=== PATIENT | male | born 1995 | race Caucasian/White ===

== ENCOUNTER 2018-03-21 08:46 | Emergency (ER) | payer BC ==
[2018-03-21] MEDS ORDERED: LIDOCAINE 1% INJ-PF (10 MG/ML) 30 ML SDV INJ ONE (09:41)
[2018-03-21] MEDS ORDERED: OXYCODONE-ACETAMINOPHEN 5-325 MG TABLET PO ONE (09:48)
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
[2018-03-21] MEDS ORDERED: DIPH/PERTUSS(ACELL)/TETANUS VAC/PF 0.5 ML SYR (>=10YO) IM ONE (10:49)
[2018-03-21 11:14] VITALS: BP 110/72
== END 2018-03-21 11:14 | disposition home or self-care (01) ==
LOC: ER 08:46
PROC: 0HQ1XZZ Repair Face Skin, External Approach (ICD-10-PCS; principal; 2018-03-21)
DX: S01.512A Laceration without foreign body of oral cavity, initial encounter (principal); S31.811A Laceration without foreign body of right buttock, initial encounter; M79.604 Pain in right leg; Y09 Assault by unspecified means; F17.200 Nicotine dependence, unspecified, uncomplicated; J45.909 Unspecified asthma, uncomplicated
CPT/HCPCS: 72220; 99283

== ENCOUNTER 2018-08-18 16:44 | Emergency (ER) | payer BC ==
[2018-08-18] MEDS ORDERED: IBUPROFEN 800 MG TABLET PO ONE (17:19)
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
[2018-08-18 18:28] VITALS: BP 120/71
== END 2018-08-18 18:28 | disposition home or self-care (01) ==
LOC: ER 16:44
DX: S00.83XA Contusion of other part of head, initial encounter (principal); Y04.0XXA Assault by unarmed brawl or fight, initial encounter; F17.210 Nicotine dependence, cigarettes, uncomplicated; Z86.14 Personal history of Methicillin resistant Staphylococcus aureus infection
CPT/HCPCS: 70486; 99284; 99406

== ENCOUNTER 2019-07-09 13:15 | Emergency (ER) | payer BC, MEDICAID ==
[2019-07-09] MEDS ORDERED: ASPIRIN 81 MG TABLET, CHEWABLE PO ONE (13:40)
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
[2019-07-09 14:59] LABS: ABSOLUTE BASOPHILS # (AUTO) 0.1 10^3/uL (0.0-0.2); ABSOLUTE EOSINOPHILS # (AUTO) 0.1 10^3/uL (0.0-0.6); ABSOLUTE LYMPHOCYTES (AUTO) 2.9 10^3/uL (0.5-4.7); ABSOLUTE MONOCYTES (AUTO) 0.9 10^3/uL (0.1-1.4); ABSOLUTE NEUT (AUTO) 6.5 10^3/uL (1.7-8.2); BASOPHILS % (AUTO) 0.7 % (0-2); EOSINOPHILS % (AUTO) 1.2 % (0-6); HEMATOCRIT 45.6 % (37.9-51.0); HEMOGLOBIN 15.6 g/dL (13.5-17.0); LYMPHOCYTES % (AUTO) 27.6 % (13-45); MEAN CORPUSCULAR HEMOGLOBIN 29.3 pg (27.0-33.4); MEAN CORPUSCULAR HGB CONC 34.2 g/dL (32.0-36.0); MEAN CORPUSCULAR VOLUME 86 fl (80-97); MONOCYTES % (AUTO) 8.8 % (3-13); PLATELET COUNT 230 10^3/uL (150-450); RED BLOOD COUNT 5.33 10^6/uL (4.35-5.55); RED CELL DISTRIBUTION WIDTH 13.7 % (11.5-14.0); SEGMENTED NEUTROPHILS % (AUTO) 61.7 % (42-78); TOTAL CELLS COUNTED % (AUTO) 100 %; WHITE BLOOD COUNT 10.5 10^3/uL (4.0-10.5)
[2019-07-09 15:21] LABS: ALBUMIN 5.1 g/dL (3.5-5.0); ALKALINE PHOSPHATASE 74 U/L (38-126); ANION GAP 13 (5-19); ASPARTATE AMINO TRANSFERASE 26 U/L (17-59); BILIRUBIN,DIRECT 0.1 mg/dL (0.0-0.4); BILIRUBIN,TOTAL 0.8 mg/dL (0.2-1.3); BLOOD UREA NITROGEN 18 mg/dL (7-20); CALCIUM 9.9 mg/dL (8.4-10.2); CARBON DIOXIDE 28 mmol/L (22-30); CHLORIDE 99 mmol/L (98-107); GLUCOSE 89 mg/dL (75-110); POTASSIUM 3.8 mmol/L (3.6-5.0); TOTAL PROTEIN 8.2 g/dL (6.3-8.2)
--- NOTE | 2019-07-09 16:05 | ER Document Report ---
ED General - General Chief Complaint: Chest Pain Stated Complaint: CHEST PAIN Time Seen by Provider: 07/09/19 13:36 Mode of Arrival: Ambulatory TRAVEL OUTSIDE OF THE [place] IN LAST 30 DAYS: No - HPI Notes: Patient is a 24-year male who presents to the emergency department for evalu ation of chest pain. He states his left-sided. He has occasional numbness in his left hand. He states this started yesterday following a panic attack. He describes it as a "bruised" feeling, states he feels like he has "numbness and tingling in his heart." He states he felt nauseated with it but has not vomited. Nothing seems to make it better or worse. He states it has been absolutely constant in character and in intensity since onset. He has had some associated palpitations associated with it as well. - Related Data Allergies/Adverse Reactions: iodine Allergy (Verified 07/09/19 13:33) oyster extract Allergy (Verified 07/09/19 13:33) Shellfish * [Shellfish] Allergy (Verified 07/09/19 13:33) Past Medical History - General Information source: Patient - Social History Smoking Status: Current Every Day Smoker Chew tobacco use (# tins/day): No Frequency of alcohol use: Occasional Family History: Arthritis, DM, Hypertension, Malignancy, Other - No family history of DVT or PE Patient has suicidal ideation: No Patient has homicidal ideation: No Pulmonary Medical History: Reports: Hx Asthma Renal/ Medical History: Denies: Hx Peritoneal Dialysis Musculoskeletal Medical History: Reports Hx Musculoskeletal Deformity, Reports Hx Musculoskeletal Trauma Skin Medical History: Reports Hx Cellulitis, Reports Hx MRSA Psychiatric Medical History: Reports: Hx Anxiety, Hx Attention Deficit Hyperactivity Disorder, Hx Depression Traumatic Medical History: Reports: Hx Fractures - Multiple fractures on the left side of his body Infectious Medical History: Reports: Hx MRSA Past Surgical History: Reports: Hx Orthopedic Surgery - Immunizations Immunizations up to date: Yes Hx Diphtheria, Pertussis, Tetanus Vaccination: Yes Review of Systems - Review of Systems Constitutional: No symptoms reported EENT: No symptoms reported Cardiovascular: See HPI Respiratory: No symptoms reported Gastrointestinal: See HPI Genitourinary: No symptoms reported Musculoskeletal: No symptoms reported Skin: No symptoms reported Neurological/Psychological: No symptoms reported Physical Exam - Vital signs Vitals: Temp Pulse Resp BP Pulse Ox 97.5 F 80 18 131/85 H 100 07/09/19 13:25 07/09/19 13:25 07/09/19 13:25 07/09/19 13:25 07/09/19 13:25 - Notes Notes: This is a very anxious appearing 24-year-old male, appears his stated age, no acute distress. Vital signs reviewed, please refer to chart. Head is normocephalic, atraumatic. Pupils equal round, reactive to light. Neck is supple without meningismus. Heart is regular rate and rhythm. Lungs are clear to auscultation bilaterally. Abdomen is soft, nontender, normoactive bowel sounds throughout. Extremities without cyanosis, clubbing. Posterior calves are nontender. Peripheral pulses are equal. Skin is warm and dry. Patient is awake, alert, neurological exam is nonfocal. Course - Re-evaluation Re-evalutation: 07/09/19 16:01 Patient presents emergency department for evaluation of chest pain. It is left- sided, nonexertional. It has been constant since onset. It certainly does not seem anginal in nature. Given the duration of his symptoms, negative troponin essentially rules out acute coronary syndrome in this patient. His only risk factor is smoking, and he is urged to quit. He voiced understanding to that. I also urged him to establish care with a primary care physician. I strongly urged him to discuss options for anxiety treatment. He voiced understanding to this. He is to return to the ED with worsening or new concerning symptoms of any sort. - Vital Signs Vital signs: Temp Pulse Resp BP Pulse Ox 97.5 F 80 18 131/85 H 100 07/09/19 13:25 07/09/19 13:25 07/09/19 13:25 07/09/19 13:25 07/09/19 13:25 - Laboratory Result Diagrams: 07/09/19 14:46 07/09/19 14:46 Laboratory results interpreted by me: 07/09/19 14:46 Albumin 5.1 H - Diagnostic Test Radiology reviewed: Reports reviewed Radiology results interpreted by me: 07/09/19 16:01 Chest X-Ray 07/09/19 13:39 IMPRESSION: No acute abnormality of the lungs. No focal airspace opacity - EKG Interpretation by Me Additional EKG results interpreted by me: 07/09/19 16:01 Sinus mechanism with a rate of 84 bpm. Normal axis and intervals, no acute ST changes concerning for ischemia or infarction. Discharge - Discharge Clinical Impression: Palpitations Chest pain Qualifiers: Chest pain type: unspecified Qualified Code(s): R07.9 - Chest pain, unspecified Condition: Stable Disposition: HOME, SELF-CARE Instructions: Chest Pain of Unclear Cause ([facility]), Palpitations (Irregular or Rapid Heartrate) ([facility]), Anxiety ([facility]) Additional Instructions: No clear cause was found for your chest pain today. Your chest x-ray, EKG, and lab work were all normal. Please try to quit smoking. Follow-up with primary care in 1 to 2 weeks. Return the emergency department with worsening or new concerning symptoms of any sort.
[2019-07-09 16:28] VITALS: BP 134/79
--- NOTE | 2019-07-09 19:03 | EKG REPORT ---
SEVERITY:- NORMAL ECG - SINUS RHYTHM : Confirmed by: Maggie Moran MD 09-Jul-2019 19:02:29
== END 2019-07-09 16:29 | disposition home or self-care (01) ==
LOC: ER 13:15
DX: R07.9 Chest pain, unspecified (principal); R20.0 Anesthesia of skin; R00.2 Palpitations; F17.200 Nicotine dependence, unspecified, uncomplicated; J45.909 Unspecified asthma, uncomplicated; Z91.013 Allergy to seafood
CPT/HCPCS: 36415; 71046; 80053; 84443; 84484; 85025; 93005; 93010; 99285

== ENCOUNTER 2020-05-05 07:14 | Emergency (ER) | payer BC ==
[2020-05-05] MEDS ORDERED: IBUPROFEN 600 MG TABLET PO ONE (08:15)
[2020-05-05] MEDS ORDERED: PREDNISONE 20 MG TABLET PO ONE (08:15)
--- NOTE | 2020-05-05 08:38 | ER Document Report ---
Entered by KALIE VALDOVINOS SCRIBE 05/05/20 0831 Acting as scribe for:ILYA ONEILL MD ED ENT - General Chief Complaint: Abdominal Problem Stated Complaint: HEADACHE,SORE THROAT Time Seen by Provider: 05/05/20 07:45 Mode of Arrival: Ambulatory Information source: Patient Notes: This 24 year old male patient presents to the emergency department today with complaints of a sore throat. Patient reports that his father was diagnosed with "stomatitis" last week and he has similar ulcerations. Patient states that he had a low-grade fever last night and this morning he has had a "little cough". TRAVEL OUTSIDE OF THE [place] 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 Lives with: Family Family History: Arthritis, DM, Hypertension, Malignancy, Other - No family history of DVT or PE Pulmonary Medical History: Reports: Hx Asthma Renal/ Medical History: Denies: Hx Peritoneal Dialysis Musculoskeletal Medical History: Reports Hx Musculoskeletal Deformity, Reports Hx Musculoskeletal Trauma Skin Medical History: Reports Hx Cellulitis, Reports Hx MRSA Psychiatric Medical History: Reports: Hx Anxiety, Hx Attention Deficit Hyperactivity Disorder, Hx Depression Traumatic Medical History: Reports: Hx Fractures - Multiple fractures on the left side of his body right knee Infectious Medical History: Reports: Hx MRSA Past Surgical History: Reports: Hx Orthopedic Surgery - Immunizations Immunizations up to date: Yes Hx Diphtheria, Pertussis, Tetanus Vaccination: Yes - 2017 Review of Systems - Review of Systems Constitutional: See HPI, Fever EENT: See HPI, Throat pain Cardiovascular: No symptoms reported Respiratory: See HPI, Cough Gastrointestinal: No symptoms reported Genitourinary: No symptoms reported Male Genitourinary: No symptoms reported Musculoskeletal: No symptoms reported Skin: No symptoms reported Hematologic/Lymphatic: No symptoms reported Neurological/Psychological: No symptoms reported -: Yes All other systems reviewed and negative Physical Exam - Vital signs Vitals: Temp Pulse Resp BP Pulse Ox 99.4 F 107 H 17 135/72 H 100 05/05/20 07:18 05/05/20 07:18 05/05/20 07:18 05/05/20 07:18 05/05/20 07:18 - Notes Notes: Physical Exam: General: Alert, appears well. HEENT: Normocephalic. Atraumatic. PERRL. Extraocular movements intact. Oropharynx clear. Tonsillar erythema, swelling, with exudate. There is tonsillar pillar erythema without swelling. Anterior cervical lymphadenopathy right greater than left. There are ulcerations on the top of the tongue and along the posterior lateral portions of the tongue. There are no ulcerations of the gums or oral mucosa. Neck: Supple. Non-tender. Respiratory: No respiratory distress. Clear and equal breath sounds bilaterally. Cardiovascular: Regular rate and rhythm. Abdominal: Normal Inspection. Non-tender. No distension. Normal Bowel Sounds. Back: No gross abnormalities. Extremities: Moves all four extremities. Upper extremities: Normal inspection. Normal ROM. Lower extremities: Normal inspection. No edema. Normal ROM. Neurological: Normal cognition. AAOx4. Normal speech. Psychological: Normal affect. Normal Mood. Skin: Warm. Dry. Normal color. Course - Re-evaluation Re-evalutation: 05/05/20 08:37 The patient was evaluated during the global COVID-19 pandemic and that diagnosis was suspected/considered upon their initial presentation. Their evaluation, treatment and testing was consistent with current guidelines for patients who present with complaints or symptoms that may be related to COVID-19. 05/05/20 10:30 Patient was sleeping soundly. I shook him and loudly called his name and eventually got him to wake up. He states he is feeling somewhat better. He milton l need a note for work. - Vital Signs Vital signs: Temp Pulse Resp BP Pulse Ox 98.5 F 94 17 115/55 L 99 05/05/20 11:01 05/05/20 11:01 05/05/20 11:01 05/05/20 11:01 05/05/20 11:01 - Laboratory Result Diagrams: 05/05/20 09:00 05/05/20 09:00 Laboratory results interpreted by me: 05/05/20 05/05/20 09:00 09:00 WBC 12.5 H RBC 4.34 L Hgb 12.9 L Hct 36.9 L RDW 14.8 H Lymph % (Auto) 8.0 L Absolute Neuts (auto) 9.8 H Absolute Monos (auto) 1.6 H Seg Neutrophils % 78.7 H Sodium 134.2 L Discharge - Discharge Clinical Impression: Viral stomatitis Condition: Stable Disposition: HOME, SELF-CARE Additional Instructions: Your evaluation today suggest you have a viral stomatitis. Your history suggests that you probably caught this from your father since he had similar symptoms recently. It is important that you get plenty of rest and stay well-hydrated. Take ibuprofen and Tylenol for pain, fever, and other discomfort. Start the prednisone as prescribed tomorrow--it will reduce inflammation and make you more comfortable while you are getting over this infection. Follow-up with your primary care provider if not improving over the next few days. RETURN TO THE EMERGENCY ROOM IF ANY NEW OR WORSENING SYMPTOMS. Prescriptions: Prednisone [Deltasone 10 mg Tablet] 10 mg PO ASDIR PRN #21 tablet PRN Reason: Forms: Return to Work I personally performed the services described in the documentation, reviewed and edited the documentation which was dictated to the scribe in my presence, and it accurately records my words and actions.
[2020-05-05 09:29] LABS: ABSOLUTE MONOCYTES (AUTO) 1.6 10^3/uL (0.1-1.4); ABSOLUTE NEUT (AUTO) 9.8 10^3/uL (1.7-8.2); BASOPHILS % (AUTO) 0.2 % (0-2); EOSINOPHILS % (AUTO) 0.2 % (0-6); HEMATOCRIT 36.9 % (37.9-51.0); HEMOGLOBIN 12.9 g/dL (13.5-17.0); MEAN CORPUSCULAR HEMOGLOBIN 29.6 pg (27.0-33.4); MEAN CORPUSCULAR HGB CONC 34.8 g/dL (32.0-36.0); MEAN CORPUSCULAR VOLUME 85 fl (80-97); MONOCYTES % (AUTO) 12.9 % (3-13); PLATELET COUNT 184 10^3/uL (150-450); RED BLOOD COUNT 4.34 10^6/uL (4.35-5.55); RED CELL DISTRIBUTION WIDTH 14.8 % (11.5-14.0); SEGMENTED NEUTROPHILS % (AUTO) 78.7 % (42-78); TOTAL CELLS COUNTED % (AUTO) 100 %; WHITE BLOOD COUNT 12.5 10^3/uL (4.0-10.5)
[2020-05-05 09:48] LABS: ALBUMIN 4.5 g/dL (3.5-5.0); ALKALINE PHOSPHATASE 76 U/L (38-126); ANION GAP 9 (5-19); ASPARTATE AMINO TRANSFERASE 25 U/L (17-59); BILIRUBIN,TOTAL 0.5 mg/dL (0.2-1.3); BLOOD UREA NITROGEN 18 mg/dL (7-20); CALCIUM 9.2 mg/dL (8.4-10.2); CARBON DIOXIDE 27 mmol/L (22-30); CHLORIDE 98 mmol/L (98-107); GLUCOSE 98 mg/dL (75-110); POTASSIUM 4.1 mmol/L (3.6-5.0); TOTAL PROTEIN 7.4 g/dL (6.3-8.2)
[2020-05-05 11:06] VITALS: BP 115/55
== END 2020-05-05 11:05 | disposition home or self-care (01) ==
LOC: ER 07:14
DX: K12.1 Other forms of stomatitis (principal); R51 Headache; J02.9 Acute pharyngitis, unspecified; R50.9 Fever, unspecified; R05 Cough; Z88.8 Allergy status to other drugs, medicaments and biological substances; F17.210 Nicotine dependence, cigarettes, uncomplicated; J45.909 Unspecified asthma, uncomplicated
CPT/HCPCS: 99283; 36415; 87070; 87880; 85025; 80053; J7512

== ENCOUNTER 2020-05-09 10:20 | Emergency (ER) | payer BC ==
--- NOTE | 2020-05-09 10:59 | ER Document Report ---
HPI - HPI Time Seen by Provider: 05/09/20 10:54 Pain Level: 5 Notes: 24-year-old male patient presents emergency department with complaints of sore throat and pain in his mouth. Patient states he was recently seen here and diagnosed with viral stomatitis. He reports pain with swallowing but he is able to swallow. No fevers, chills, nausea, vomiting. No concern for COVID-19 exposure. - ROS Systems Reviewed and Negative: Yes All other systems reviewed and negative - EENT EENT: REPORTS: Sore Throat - REPRODUCTIVE Reproductive: DENIES: : Past Medical History - General Information source: Patient - Social History Smoking Status: Never Smoker Chew tobacco use (# tins/day): No Frequency of alcohol use: None Drug Abuse: None Family History: Arthritis, DM, Hypertension, Malignancy, Other - No family history of DVT or PE Patient has homicidal ideation: No Pulmonary Medical History: Reports: Hx Asthma Renal/ Medical History: Denies: Hx Peritoneal Dialysis Musculoskeletal Medical History: Reports Hx Musculoskeletal Deformity, Reports Hx Musculoskeletal Trauma Skin Medical History: Reports Hx Cellulitis, Reports Hx MRSA Psychiatric Medical History: Reports: Hx Anxiety, Hx Attention Deficit Hyperactivity Disorder, Hx Depression Traumatic Medical History: Reports: Hx Fractures - Multiple fractures on the left side of his body right knee Infectious Medical History: Reports: Hx MRSA Past Surgical History: Reports: Hx Orthopedic Surgery - Immunizations Immunizations up to date: Yes Hx Diphtheria, Pertussis, Tetanus Vaccination: Yes - 2017 Vertical Provider Document - CONSTITUTIONAL Notes: PHYSICAL EXAMINATION: GENERAL: Well-appearing, well-nourished and in no acute distress. HEAD: Atraumatic, normocephalic. EYES: Pupils equal round extraocular movements intact, conjunctiva are normal. ENT: Nares patent, oropharynx mildly erythematous, mild tonsillar swelling, no exudates, uvula midline, no peritonsillar abscess. Multiple ulcerations noted to tongue. NECK: Normal range of motion LUNGS: No respiratory distress Musculoskeletal: Normal range of motion NEUROLOGICAL: Normal speech, normal gait. PSYCH: Normal mood, normal affect. SKIN: Warm, Dry, normal turgor, no rashes or lesions noted. - INFECTION CONTROL TRAVEL OUTSIDE OF THE [place] IN LAST 30 DAYS: No Course - Re-evaluation Re-evalutation: Patient appears well, nontoxic. He is speaking in full complete sentences without difficulty. He is swallowing without difficulty. He is on steroids for his viral stomatitis, will also prescribe Magic mouthwash. Patient agreeable to this plan. Discharge - Discharge Clinical Impression: Viral stomatitis Condition: Stable Disposition: HOME, SELF-CARE Additional Instructions: Please continue taking the steroids as prescribed by Dr. Kimball. Start using the medicated mouthwash, you may use this 4 times per day. This should help with pain and inflammation. You will need to follow-up with your primary care provider. Please continue taking Tylenol and ibuprofen for discomfort as well. Prescriptions: Nystatin/Dexameth/Diphen [Magic Mouthwash ([facility] Formula) Susp] 10 ml PO QID #240 ml Forms: Return to Work
[2020-05-09 11:02] VITALS: BP 130/62
== END 2020-05-09 11:10 | disposition home or self-care (01) ==
LOC: ER 10:20
DX: K12.1 Other forms of stomatitis (principal); J02.9 Acute pharyngitis, unspecified; R13.10 Dysphagia, unspecified; J45.909 Unspecified asthma, uncomplicated
CPT/HCPCS: 99283

== ENCOUNTER 2020-07-06 19:18 | Emergency (ER) | payer BC ==
[2020-07-06 19:26] VITALS: BP 129/77
--- NOTE | 2020-07-06 19:55 | ER Document Report ---
HPI - HPI Patient complains to provider of: Work clearance Time Seen by Provider: 07/06/20 19:45 Pain Level: Denies Notes: 25-year-old male to the emergency department with complaints of nausea and vomiting that began 2 days ago and has since resolved. He states his symptoms started after eating undercooked chicken. He states that his significant other made chicken and it looked "so good" that he did not realize that it was undercooked until used into the third breast of chicken. He states he got sick later that night and had been having nausea and vomiting for the past 2 days. He states he was able to hold up some Pepto-Bismol today. And since then has not had any nausea or vomiting. He states that he has been able to eat lots of different things including Doritos and spaghetti. He denies any abdominal pain, diarrhea, fevers, sore throat, cough, congestion, ear pain, or body aches. He states that his work is making him to get medical clearance prior to returning. He denies any known COVID-19 exposures. - ROS Systems Reviewed and Negative: Yes All other systems reviewed and negative - CONSTITUTIONAL Constitutional: DENIES: Fever, Chills - EENT EENT: DENIES: Sore Throat, Ear Pain - NEURO Neurology: DENIES: Headache - CARDIOVASCULAR Cardiovascular: DENIES: Chest pain - RESPIRATORY Respiratory: DENIES: Trouble Breathing, Coughing - GASTROINTESTINAL Gastrointestinal: REPORTS: Nausea - Nausea and vomiting that began 2 days ago and is now resolved. DENIES: Abdominal Pain, Diarrhea, Constipation - MUSCULOSKELETAL Musculoskeletal: DENIES: Back Pain, Neck Pain, Swelling - DERM Skin Color: Normal Skin Problems: None Past Medical History - General Information source: Patient - Social History Smoking Status: Current Every Day Smoker Frequency of alcohol use: Rare Drug Abuse: None Family History: Arthritis, DM, Hypertension, Malignancy, Other - No family hist ory of DVT or PE Pulmonary Medical History: Reports: Hx Asthma Renal/ Medical History: Denies: Hx Peritoneal Dialysis Musculoskeletal Medical History: Reports Hx Musculoskeletal Deformity, Reports Hx Musculoskeletal Trauma Skin Medical History: Reports Hx Cellulitis, Reports Hx MRSA Psychiatric Medical History: Reports: Hx Anxiety, Hx Attention Deficit Hyperactivity Disorder, Hx Depression Traumatic Medical History: Reports: Hx Fractures - Multiple fractures on the left side of his body right knee Infectious Medical History: Reports: Hx MRSA Past Surgical History: Reports: Hx Orthopedic Surgery - Immunizations Immunizations up to date: Yes Hx Diphtheria, Pertussis, Tetanus Vaccination: Yes - 2017 Vertical Provider Document - CONSTITUTIONAL Agree With Documented VS: Yes Exam Limitations: No Limitations General Appearance: WD/WN, No Apparent Distress - INFECTION CONTROL TRAVEL OUTSIDE OF THE [place] IN LAST 30 DAYS: No - HEENT HEENT: Atraumatic, Normocephalic, PERRLA - NECK Neck: Normal Inspection, Supple - RESPIRATORY Respiratory: Breath Sounds Normal, No Respiratory Distress. negative: Rales, Rhonchi, Wheezing - CARDIOVASCULAR Cardiovascular: Regular Rate, Regular Rhythm, No Murmur - GI/ABDOMEN Gastrointestinal: Abdomen Soft, Abdomen Non-Tender, No Organomegaly - BACK Back: Normal Inspection. negative: CVA Tenderness-Right, CVA Tenderness-Left - MUSCULOSKELETAL/EXTREMETIES Musculoskeletal/Extremeties: MAEW, FROM, Non-Tender - NEURO Level of Consciousness: Awake, Alert, Appropriate Motor/Sensory: No Motor Deficit, No Sensory Deficit - DERM Integumentary: Warm, Dry, No Rash Course - Re-evaluation Re-evalutation: Impression: Nausea and vomiting that is resolved with Pepto-Bismol at home. Patient has a completely normal exam. His vital signs are reassuring. He has been eating normal food for most of the day. Do not think that he needs further lab work or imaging. He has no other signs or symptoms of COVID-19. Plan will be to discharge her arm and write for work note to return. Will supply with prescription for Zofran in case his vomiting returns. Have encouraged him to return at any time should he worsen. Patient agrees with the plan - Vital Signs Vital signs: Temp Pulse Resp BP Pulse Ox 98.3 F 81 16 129/77 H 96 07/06/20 19:25 07/06/20 19:25 07/06/20 19:25 07/06/20 19:25 07/06/20 19:25 Discharge - Discharge Clinical Impression: Vomiting Qualifiers: Vomiting type: unspecified Vomiting Intractability: non-intractable Nausea presence: with nausea Qualified Code(s): R11.2 - Nausea with vomiting, unspecified Condition: Stable Disposition: HOME, SELF-CARE Instructions: Vomiting ([facility]) Additional Instructions: Push fluids. Take medicines as needed for any further nausea. Return if you have worsening symptoms. Prescriptions: Ondansetron [Zofran Odt 4 mg Tablet] 1 - 2 tab PO Q4H PRN #15 tab.rapdis PRN Reason: For Nausea/Vomiting Forms: Return to Work Referrals: [facility] [Provider Group] - Follow up as needed
== END 2020-07-06 19:55 | disposition home or self-care (01) ==
LOC: ER 19:18
DX: R11.2 Nausea with vomiting, unspecified (principal); F17.200 Nicotine dependence, unspecified, uncomplicated; J45.909 Unspecified asthma, uncomplicated
CPT/HCPCS: 99283

== ENCOUNTER 2020-08-06 15:57 | Emergency (ER) | payer SELFPAY ==
--- NOTE | 2020-08-06 16:59 | ER Document Report ---
ED Medical Screen (RME) - General Stated Complaint: VOMITING BLOOD Time Seen by Provider: 08/06/20 16:45 TRAVEL OUTSIDE OF THE [place] IN LAST 30 DAYS: No - HPI Notes: 08/06/20 16:53 25 yr old male presents for an evaluation of vomiting several times yesterday and then this morning he states he vomited up around a tablespoon of blood. pt states he was wretching when he was vomiting. denies being on blood thinners. no otc meds tried. pt states he is unsure if he has been around covid positive patients, but would like to be checked for this today. denies cp, sob. is currently not nauseous or vomiting. pt is drinking and eating without issues. no chronic medical issues. pt smokes. denies any fevers or chills. denies any abd pain. I have greeted and performed a rapid initial assessment of this patient. A comprehensive ED assessment and evaluation of the patient, analysis of test results and completion of the medical decision making process will be conducted by additional ED providers. PHYSICAL EXAMINATION: GENERAL: Well-appearing, well-nourished and in no acute distress. HEAD: Atraumatic, normocephalic. NECK: Normal range of motion CV: s1, s2 regular LUNGS: No respiratory distress - Related Data Allergies/Adverse Reactions: iodine Allergy (Verified 05/09/20 10:52) oyster extract Allergy (Verified 05/09/20 10:52) Shellfish * [Shellfish] Allergy (Verified 05/09/20 10:52) Past Medical History Pulmonary Medical History: Reports: Hx Asthma Renal/ Medical History: Denies: Hx Peritoneal Dialysis Musculoskeltal Medical History: Reports Hx Musculoskeletal Deformity, Reports Hx Musculoskeletal Trauma Skin Medical History: Reports Hx Cellulitis, Reports Hx MRSA Psychiatric Medical History: Reports: Hx Anxiety, Hx Attention Deficit Hyperactivity Disorder, Hx Depression Traumatic Medical History: Reports: Hx Fractures - Multiple fractures on the left side of his body right knee Infectious Medical History: Reports: Hx MRSA Past Surgical History: Reports: Hx Orthopedic Surgery - Immunizations Immunizations up to date: Yes Hx Diphtheria, Pertussis, Tetanus Vaccination: Yes - 2016 Physical Exam - Vital signs Vitals: Temp Pulse Resp BP Pulse Ox 97.7 F 84 18 130/75 H 97 08/06/20 16:25 08/06/20 16:25 08/06/20 16:25 08/06/20 16:25 08/06/20 16:25 Course - Vital Signs Vital signs: Temp Pulse Resp BP Pulse Ox 97.7 F 84 18 130/75 H 97 08/06/20 16:25 08/06/20 16:25 08/06/20 16:25 08/06/20 16:25 08/06/20 16:25
--- NOTE | 2020-08-06 18:10 | RADIOLOGY REPORT (SQ) ---
EXAM DESCRIPTION: CHEST SINGLE VIEW IMAGES COMPLETED DATE/TIME: 08/06/2020 5:58 pm REASON FOR STUDY: coughing, vomiting COMPARISON: None. EXAM PARAMETERS: NUMBER OF VIEWS: One view. TECHNIQUE: Single frontal radiographic view of the chest acquired. RADIATION DOSE: NA LIMITATIONS: None. FINDINGS: LUNGS AND PLEURA: No focal consolidation, pleural effusion, or pneumothorax. MEDIASTINUM AND HILAR STRUCTURES: No masses. Contour normal. HEART AND VASCULAR STRUCTURES: Heart normal in size. Normal vasculature. BONES: No acute findings. HARDWARE: None in the chest. OTHER: No other significant finding. IMPRESSION: NO ACUTE RADIOGRAPHIC FINDING IN THE CHEST. TECHNICAL DOCUMENTATION: JOB ID: [id number] 2010 [employer]- All Rights Reserved Reading location - IP/workstation name: [email or web address]
[2020-08-06 18:46] LABS: AMORPHOUS SEDIMENT,URINE 2+ /HPF; APPEARANCE,URINE TURBID; BILIRUBIN,URINE NEGATIVE (NEGATIVE); CALCIUM OXALATE CRYSTALS,URINE FEW /HPF; COLOR,URINE YELLOW; GLUCOSE, URINE NEGATIVE (NEGATIVE); KETONES,URINE NEGATIVE (NEGATIVE); LEUKOCYTE ESTERASE,URINE NEGATIVE (NEGATIVE); NITRITE,URINE NEGATIVE (NEGATIVE); PROTEIN,URINE 30 mg/dL (NEGATIVE); URINE SPECIFIC GRAVITY 1.034
[2020-08-06 19:14] LABS: ABSOLUTE BASOPHILS # (AUTO) 0.1 10^3/uL (0.0-0.2); ABSOLUTE EOSINOPHILS # (AUTO) 0.2 10^3/uL (0.0-0.6); ABSOLUTE LYMPHOCYTES (AUTO) 2.1 10^3/uL (0.5-4.7); ABSOLUTE MONOCYTES (AUTO) 0.6 10^3/uL (0.1-1.4); ABSOLUTE NEUT (AUTO) 4.7 10^3/uL (1.7-8.2); BASOPHILS % (AUTO) 0.7 % (0-2); EOSINOPHILS % (AUTO) 3.2 % (0-6); HEMOGLOBIN 11.7 g/dL (13.5-17.0); LYMPHOCYTES % (AUTO) 27.6 % (13-45); MEAN CORPUSCULAR HEMOGLOBIN 28.2 pg (27.0-33.4); MEAN CORPUSCULAR HGB CONC 34.3 g/dL (32.0-36.0); MEAN CORPUSCULAR VOLUME 82 fl (80-97); MONOCYTES % (AUTO) 7.7 % (3-13); PLATELET COUNT 265 10^3/uL (150-450); RED BLOOD COUNT 4.13 10^6/uL (4.35-5.55); SEGMENTED NEUTROPHILS % (AUTO) 60.8 % (42-78); TOTAL CELLS COUNTED % (AUTO) 100 %; WHITE BLOOD COUNT 7.7 10^3/uL (4.0-10.5)
[2020-08-06 19:30] LABS: URINE BARBITURATES SCREEN NEGATIVE; URINE COCAINE SCREEN NEGATIVE; URINE METHADONE SCREEN NEGATIVE; URINE PHENCYCLIDINE SCREEN NEGATIVE
[2020-08-06 19:33] LABS: ALBUMIN 3.9 g/dL (3.5-5.0); ALKALINE PHOSPHATASE 67 U/L (38-126); ANION GAP 6 (5-19); ASPARTATE AMINO TRANSFERASE 17 U/L (17-59); BILIRUBIN,DIRECT 0.1 mg/dL (0.0-0.4); BILIRUBIN,TOTAL 0.3 mg/dL (0.2-1.3); BLOOD UREA NITROGEN 13 mg/dL (7-20); CARBON DIOXIDE 34 mmol/L (22-30); CHLORIDE 97 mmol/L (98-107); GLUCOSE 89 mg/dL (75-110); POTASSIUM 3.8 mmol/L (3.6-5.0); TOTAL PROTEIN 6.4 g/dL (6.3-8.2)
[2020-08-06 19:41] LABS: URINE BENZODIAZEPINES SCREEN UNCONFIRMED POSITIVE
[2020-08-06 19:42] LABS: URINE MARIJUANA (THC) SCREEN UNCONFIRMED POSITIVE
--- NOTE | 2020-08-06 19:59 | ER Document Report ---
Entered by KALIE VALDOVINOS SCRIBE 08/06/201911 Acting as scribe for:[facility]/ - General Chief Complaint: Vomiting Stated Complaint: VOMITING BLOOD Time Seen by Provider: 08/06/20 16:45 Mode of Arrival: Ambulatory Information source: Patient Notes: This 25-year-old male patient presents to the emergency department today with complaints of nausea and vomiting last night. Patient states he thinks he ate bad chicken. Patient states after several episodes of retching he noticed some blood specks in his vomit. Patient states he mentioned this to his grandma who told him that this could be a sign of COVID-19 and that he needed to be checked out. He denies any sick contacts or known COVID-19 exposure. TRAVEL OUTSIDE OF THE [place] IN LAST 30 DAYS: No - Related Data Allergies/Adverse Reactions: iodine Allergy (Verified 08/06/20 18:59) oyster extract Allergy (Verified 08/06/20 18:59) Shellfish * [Shellfish] Allergy (Verified 08/06/20 18:59) Past Medical History - General Information source: Patient - Social History Smoking Status: Current Every Day Smoker Cigarette use (# per day): Yes Frequency of alcohol use: Occasional Drug Abuse: None Lives with: Family Family History: Arthritis, DM, Hypertension, Malignancy, Other - No family history of DVT or PE Pulmonary Medical History: Reports: Hx Asthma Musculoskeletal Medical History: Reports Hx Musculoskeletal Deformity, Reports Hx Musculoskeletal Trauma Skin Medical History: Reports Hx Cellulitis, Reports Hx MRSA Psychiatric Medical History: Reports: Hx Anxiety, Hx Attention Deficit Hyperactivity Disorder, Hx Depression Traumatic Medical History: Reports: Hx Fractures - Multiple fractures on the left side of his body right knee Infectious Medical History: Reports: Hx MRSA Past Surgical History: Reports: Hx Orthopedic Surgery - Immunizations Immunizations up to date: Yes Hx Diphtheria, Pertussis, Tetanus Vaccination: Yes - 2017 Review of Systems - Review of Systems Constitutional: No symptoms reported EENT: No symptoms reported Cardiovascular: No symptoms reported Respiratory: No symptoms reported Gastrointestinal: See HPI, Nausea, Vomiting Genitourinary: No symptoms reported Male Genitourinary: No symptoms reported Musculoskeletal: No symptoms reported Skin: No symptoms reported Hematologic/Lymphatic: No symptoms reported Neurological/Psychological: No symptoms reported -: Yes All other systems reviewed and negative Physical Exam - Vital signs Vitals: Temp Pulse Resp BP Pulse Ox 97.7 F 84 18 130/75 H 97 08/06/20 16:25 08/06/20 16:25 08/06/20 16:25 08/06/20 16:25 08/06/20 16:25 - Notes Notes: Physical Exam: General: Alert, appears well. HEENT: Normocephalic. Atraumatic. PERRL. Extraocular movements intact. Oropharynx clear. Neck: Supple. Non-tender. Respiratory: No respiratory distress. Clear and equal breath sounds bilaterally. Cardiovascular: Regular rate and rhythm. Abdominal: Normal Inspection. Non-tender. No distension. Normal Bowel Sounds. Back: No gross abnormalities. Extremities: Moves all four extremities. Upper extremities: Normal inspection. Normal ROM. Lower extremities: Normal inspection. No edema. Normal ROM. Neurological: Normal cognition. AAOx4. Normal speech. Psychological: Normal affect. Normal Mood. Skin: Warm. Dry. Normal color. Course - Re-evaluation Re-evalutation: 08/06/20 20:42 MDM 25 year felt he may have eaten bad chicken. Vomited last evening. Better today, but concerned. No abd pain. No fever or chills. Denies drug use. Nontoxic here. Feel he may safely follow up. - Vital Signs Vital signs: Temp Pulse Resp BP Pulse Ox 97.7 F 84 18 130/75 H 97 08/06/20 16:25 08/06/20 16:25 08/06/20 16:25 08/06/20 16:25 08/06/20 16:25 - Laboratory Result Diagrams: 08/06/20 18:40 08/06/20 18:40 Laboratory results interpreted by me: 08/06/20 08/06/20 08/06/20 16:16 18:40 18:40 RBC 4.13 L Hgb 11.7 L Hct 34.0 L Chloride 97 L Carbon Dioxide 34 H Urine Protein 30 H Urine Urobilinogen 2.0 H - Diagnostic Test Radiology reviewed: Image reviewed, Reports reviewed Discharge - Discharge Clinical Impression: Vomiting Qualifiers: Vomiting type: unspecified Vomiting Intractability: non-intractable Nausea presence: with nausea Qualified Code(s): R11.2 - Nausea with vomiting, unspecified Condition: Stable Disposition: HOME, SELF-CARE Instructions: Antinausea Medication ([facility]), Vomiting ([facility]) Additional Instructions: Reccomend you stop smoking tobacco and or marijuiania. See your doctor in follow up or the referral doctor. Please return here for vomiting blood, chest pain or shortness of breath or other problems or concerns. Take your medicine as directed. Clear liquids for 24 hours and then advance your diet to regular. [facility]. I personally performed the services described in the documentation, reviewed and edited the documentation which was dictated to the scribe in my presence, and it accurately records my words and actions.
[2020-08-06 20:59] VITALS: BP 130/61
== END 2020-08-06 21:04 | disposition home or self-care (01) ==
LOC: ER 15:57
DX: K92.0 Hematemesis (principal); J45.909 Unspecified asthma, uncomplicated; F17.210 Nicotine dependence, cigarettes, uncomplicated; Z91.013 Allergy to seafood; Z20.828 Contact with and (suspected) exposure to other viral communicable diseases
CPT/HCPCS: 99284; 36415; 83690; 85025; 87635; 80053; 81001; 80307; 71045; C9803